=== PATIENT | female | born 1960 | race Caucasian/White ===

== ENCOUNTER 2020-10-13 08:45 | Outpatient (CLI) | payer BC | END 2020-10-13 08:46 | disposition home or self-care (01) | LOC: BICMAMMO 08:45 | PROVIDERS: ATTEND Family Medicine | DX: Z12.31 Encounter for screening mammogram for malignant neoplasm of breast (principal); Z91.89 Other specified personal risk factors, not elsewhere classified | CPT/HCPCS: 77063; 77067 ==

== ENCOUNTER 2021-02-07 08:15 | Outpatient (CLI) | payer BC | END 2021-02-07 08:16 | disposition home or self-care (01) | LOC: BICMRI 08:15 | PROVIDERS: ATTEND Anesthesiology Pain Medicine | DX: M54.14 Radiculopathy, thoracic region (principal) | CPT/HCPCS: 72146 ==

== ENCOUNTER 2021-03-19 09:31 | Outpatient (CLI) | payer BC | END 2021-03-19 09:32 | disposition home or self-care (01) | LOC: NM 09:31 | PROVIDERS: ATTEND Anesthesiology Pain Medicine | DX: R07.81 Pleurodynia (principal); R93.7 Abnormal findings on diagnostic imaging of other parts of musculoskeletal system | CPT/HCPCS: 78306; A9503 ==

== ENCOUNTER 2021-04-27 13:44 | Outpatient (CLI) | payer BC ==
[~2021-04-27 13:44] MED LIST: Magnevist 469MG/ML 20 ML VIAL ONE
== END 2021-04-27 13:45 | disposition home or self-care (01) ==
LOC: BICMRI 13:44
PROVIDERS: ATTEND Anesthesiology Pain Medicine
DX: G35 Multiple sclerosis (principal)
CPT/HCPCS: 70553; 82565; A9579

== ENCOUNTER 2022-01-01 08:08 | Outpatient (CLI) | payer BC | END 2022-01-01 08:09 | disposition home or self-care (01) | LOC: BICMAMMO 08:08 | PROVIDERS: ATTEND Family Medicine | DX: Z12.31 Encounter for screening mammogram for malignant neoplasm of breast (principal); Z13.820 Encounter for screening for osteoporosis; M85.89 Other specified disorders of bone density and structure, multiple sites; Z78.0 Asymptomatic menopausal state; Z80.3 Family history of malignant neoplasm of breast; Z91.89 Other specified personal risk factors, not elsewhere classified | CPT/HCPCS: 77063; 77067; 77080 ==

== ENCOUNTER 2022-05-03 09:44 | Outpatient (CLI) | payer BC | END 2022-05-03 09:45 | disposition home or self-care (01) | LOC: RAD 09:44 | PROVIDERS: ATTEND Surgery | DX: K21.9 Gastro-esophageal reflux disease without esophagitis (principal) | CPT/HCPCS: 74220 ==

== ENCOUNTER 2022-06-26 08:37 | Outpatient (CLI) | payer BC | END 2022-06-26 08:38 | disposition home or self-care (01) | LOC: MRI 08:37 | PROVIDERS: ATTEND Anesthesiology Pain Medicine | DX: M47.22 Other spondylosis with radiculopathy, cervical region (principal) | CPT/HCPCS: 72141 ==

== ENCOUNTER 2023-03-19 02:47 | Inpatient (IN) | payer BC ==
[2023-03-19 04:06] VITALS: BMI 29.9
[2023-03-19] MEDS ORDERED: Acetaminophen 325 MG TAB PO PRN (04:15)
[2023-03-19] MEDS ORDERED: Ondansetron ODT 4 MG TAB SL PRN (04:15)
[2023-03-19] MEDS ORDERED: Ondansetron PF 4 MG/2 ML Vial IVP PRN (04:15)
[2023-03-19] MEDS ORDERED: Senokot S 8.6-50 MG TAB PO PRN (04:32)
[2023-03-19 05:35] LABS: #Eosinphils 0.4 thou/uL (0.0-0.7); #Monocytes 1.7 thou/uL (0.11-0.59); #Neutrophils 9.7 thou/uL (1.40-6.50); %Basophils 0.2 % (0.0-1.0); %Eosinophils 2.7 % (0.0-10.0); %Lymphocytes 17.1 % (21.0-51.0); %Monocytes 12.1 % (0.0-10.0); %Neutrophils 67.6 % (42.0-75.0); Hematocrit 33.5 % (36.0-47.0); Hemoglobin 10.5 g/dL (12.0-16.0); Mean Corpuscular HGB CONC 31.3 g/dL (32.0-36.0); Mean Corpuscular Volume 89.3 fl (78.0-98.0); Mean Platelet Volume 10.1 fL (7.4-10.4); Platelet Count 530 10x3/uL (130-400); RBC Distribution Width 13.2 % (11.5-14.5); Red Blood Cell (RBC) Count 3.75 mill/uL (4.20-5.40); White Blood Cell (WBC) Count 14.3 10x3/uL (4.8-10.8)
[2023-03-19 06:02] LABS: ALT (SGPT) 11 U/L (8-55); AST (SGOT) 14 U/L (5-34); Albumin 3.2 g/dL (3.4-4.8); Alkaline Phosphatase 121 U/L (40-110); Anion Gap 13 mmol/L (10-20); BUN (Urea Nitrogen) 10 mg/dL (9.8-20.1); Bilirubin, Total 0.2 mg/dL (0.2-1.2); Calc. Creatinine Clearance 92 mL/min (70-130); Calcium 8.9 mg/dL (7.8-10.44); Carbon Dioxide 28 mmol/L (23-31); Chloride 103 mmol/L (98-107); Estimated GFR 82; Globulin 4.1 g/dL (2.4-3.5); Glucose 106 mg/dL (80-115); Potassium 3.4 mmol/L (3.5-5.1); Protein, Total 7.3 g/dL (5.8-8.1); Sodium 141 mmol/L (136-145)
[2023-03-19] MEDS ORDERED: Morphine 4 MG/ML VIAL SLOW IVP SCH (07:45)
[2023-03-19] MEDS ORDERED: Potassium Chloride 20 MEQ TAB PO SCH (08:00)
[2023-03-19] MEDS: LevoFLOXacin 750 mg/D5W 750 MG in Premix Bag 1 BAG IVPB SCH ×2 (08:35→08:38)
[2023-03-19] MEDS: Gabapentin 300 MG CAP PO SCH ×3 (08:37→21:14)
[2023-03-19] MEDS: DULoxetine 60 MG CAP PO SCH (08:37)
[2023-03-19] MEDS: Famotidine 20 MG TAB PO SCH ×2 (08:37→21:13)
[2023-03-19] MEDS: Baclofen 10 MG TAB PO PRN ×2 (10:21→23:40)
[2023-03-19 11:20] LABS: INR-International Normal Ratio 1.1; PTT 53.8 sec (22.9-36.1)
[2023-03-19] MEDS: Morphine 4 MG/ML VIAL SLOW IVP PRN ×3 (13:28→23:39)
[2023-03-19] MEDS ORDERED: Iopamidol-370 76% 500 ML MDV (1 ML CHARGE) ONE (16:01)
[2023-03-19] MEDS ORDERED: Montelukast Sodium 10 mg Tablet PO SCH (21:00)
[2023-03-19] MEDS: DULoxetine 30 MG CAP PO SCH (21:12)
[2023-03-20 06:11] LABS: #Basophils 0.1 thou/uL (0.0-0.2); #Eosinphils 0.4 thou/uL (0.0-0.7); #Monocytes 1.6 thou/uL (0.11-0.59); #Neutrophils 7.4 thou/uL (1.40-6.50); %Basophils 0.4 % (0.0-1.0); %Eosinophils 3.4 % (0.0-10.0); %Lymphocytes 15.9 % (21.0-51.0); %Neutrophils 65.8 % (42.0-75.0); Hemoglobin 9.8 g/dL (12.0-16.0); Mean Corpuscular HGB CONC 31.6 g/dL (32.0-36.0); Mean Corpuscular Volume 88.6 fl (78.0-98.0); Mean Platelet Volume 9.8 fL (7.4-10.4); Platelet Count 541 10x3/uL (130-400); RBC Distribution Width 13.3 % (11.5-14.5); White Blood Cell (WBC) Count 11.3 10x3/uL (4.8-10.8)
[2023-03-20] MEDS: Morphine 4 MG/ML VIAL SLOW IVP PRN (06:38)
[2023-03-20 07:06] LABS: ALT (SGPT) 13 U/L (8-55); AST (SGOT) 24 U/L (5-34); Albumin 2.9 g/dL (3.4-4.8); Alkaline Phosphatase 105 U/L (40-110); Anion Gap 15 mmol/L (10-20); BUN (Urea Nitrogen) 6 mg/dL (9.8-20.1); Bilirubin, Total 0.2 mg/dL (0.2-1.2); Calc. Creatinine Clearance 94 mL/min (70-130); Calcium 8.9 mg/dL (7.8-10.44); Carbon Dioxide 26 mmol/L (23-31); Chloride 102 mmol/L (98-107); Estimated GFR 85; Globulin 3.9 g/dL (2.4-3.5); Glucose 100 mg/dL (80-115); Potassium 3.8 mmol/L (3.5-5.1); Protein, Total 6.8 g/dL (5.8-8.1); Sodium 139 mmol/L (136-145)
[2023-03-20] MEDS ORDERED: Acetaminophen 325 MG TAB PO PRN (08:27)
[2023-03-20] MEDS ORDERED: clonazePAM 1 MG TAB PO SCH (09:00)
[2023-03-20] MEDS ORDERED: fentaNYL 50 mcg/mL 1 mL Vial ONE (09:24)
[2023-03-20] MEDS ORDERED: Lidocaine 1% PF 5 ML VIAL ONE (09:56)
[2023-03-20] MEDS ORDERED: PHENYLEPHRINE-NS 100 MCG/ML 10 ML SYRINGE ONE (09:56)
[2023-03-20] MEDS ORDERED: PROPOFOL 200 MG/20 ML VIAL ONE (09:56)
[2023-03-20] MEDS: DULoxetine 60 MG CAP PO SCH (10:59)
[2023-03-20] MEDS: Gabapentin 300 MG CAP PO SCH ×3 (10:59→21:49)
[2023-03-20] MEDS: Loratadine 10 MG TAB PO SCH (11:00)
[2023-03-20] MEDS: Morphine 2 MG/ML VIAL SLOW IVP PRN ×3 (12:47→21:52)
[2023-03-20] MEDS ORDERED: Sodium Chloride 0.9% 1,000 ML IV SCH (13:15)
[2023-03-20] MEDS ORDERED: Lidocaine 4% PF 5 ML AMP NEB SCH (14:00)
[2023-03-20] MEDS ORDERED: Ipratropium/Albuterol 3 ML NEB NEB SCH (14:00)
[2023-03-20] MEDS: Docusate 100 MG CAP PO PRN ×2 (17:33→17:36)
[2023-03-20] MEDS: DULoxetine 30 MG CAP PO SCH (21:51)
[2023-03-20] MEDS: Baclofen 10 MG TAB PO PRN (21:51)
[2023-03-21] MEDS ORDERED: Morphine 2 MG/ML VIAL SLOW IVP PRN (00:50)
[2023-03-21] MEDS: Sodium Chloride 0.9% 1,000 ML IV SCH ×2 (02:46→20:46)
[2023-03-21] MEDS ORDERED: fentaNYL PF 100 MCG/2 ML SYRINGE ONE (06:28)
[2023-03-21] MEDS ORDERED: Dexmedetomidine 200 MCG/2 ML VIAL ONE (06:29)
[2023-03-21] MEDS ORDERED: SUGAMMADEX SODIUM 200 MG/2 ML VIAL ONE (06:29)
[2023-03-21] MEDS ORDERED: Propofol 500 MG/50 ML VIAL ONE (06:50)
[2023-03-21] MEDS ORDERED: Lidocaine 1% PF 5 ML VIAL ONE (07:35)
[2023-03-21] MEDS ORDERED: Glycopyrrolate 0.2 MG/ML 5 ML SYRINGE ONE (07:35)
[2023-03-21] MEDS ORDERED: Rocuronium Bromide 10 MG/ML (10ML VIAL) ONE (07:35)
[2023-03-21] MEDS ORDERED: PROPOFOL 200 MG/20 ML VIAL ONE (07:35)
[2023-03-21] MEDS ORDERED: Ondansetron PF 4 MG/2 ML Vial ONE (07:35)
[2023-03-21] MEDS ORDERED: Dexamethasone 20 MG/5 ML VIAL ONE (07:35)
[2023-03-21] MEDS ORDERED: NEOSTIGMINE 3 MG/3 ML SYR 3 MG/3 ML SYRINGE ONE (07:35)
[2023-03-21] MEDS ORDERED: Albuterol HFA (OR) 200 PUFF INH ONE (07:35)
[2023-03-21] MEDS ORDERED: PHENYLEPHRINE-NS 100 MCG/ML 10 ML SYRINGE ONE (07:35)
[2023-03-21] MEDS: Gabapentin 300 MG CAP PO SCH ×3 (11:34→20:44)
[2023-03-21] MEDS: DULoxetine 60 MG CAP PO SCH (11:35)
[2023-03-21] MEDS ORDERED: Phenol 177 ML BOT PO PRN (11:48)
[2023-03-21] MEDS: Baclofen 10 MG TAB PO PRN (14:34)
[2023-03-21] MEDS: HYDROcodone/Acetaminophen 10/325 mg Tablet PO PRN ×2 (14:34→18:42)
[2023-03-21] MEDS: Docusate 100 MG CAP PO PRN (18:42)
[2023-03-21] MEDS: DULoxetine 30 MG CAP PO SCH (20:45)
[2023-03-22] MEDS: HYDROcodone/Acetaminophen 10/325 mg Tablet PO PRN ×2 (00:06→07:32)
[2023-03-22 08:24] VITALS: TEMP 98.4
[2023-03-22] MEDS ORDERED: FLU VACC QS2023-24(6MOS UP)/PF 60 MCG/0.5 ML SYRINGE IM ONE (09:00)
[2023-03-22] MEDS: Gabapentin 300 MG CAP PO SCH (09:10)
[2023-03-22] MEDS: DULoxetine 60 MG CAP PO SCH (09:10)
[2023-03-22 09:15] VITALS: BP 110/73
[2023-03-22] MEDS: Loratadine 10 MG TAB PO SCH (09:24)
[2023-03-22] MEDS: Baclofen 10 MG TAB PO PRN (09:24)
== END 2023-03-22 10:49 | disposition home or self-care (01) | DRG 327 ==
LOC: SJJU 03:29 → OBSVTOIN 03-20 08:27
PROVIDERS: ADMIT Family Medicine; ATTEND Internal Medicine
PROC: 0DW63CZ Revision of Extraluminal Device in Stomach, Percutaneous Approach (ICD-10-PCS; 2023-03-20)
PROC: 0DJ08ZZ Inspection of Upper Intestinal Tract, Via Natural or Artificial Opening Endoscopic (ICD-10-PCS; 2023-03-20)
PROC: 0BBF8ZX Excision of Right Lower Lung Lobe, Via Natural or Artificial Opening Endoscopic, Diagnostic (ICD-10-PCS; principal; 2023-03-21)
PROC: 0BDF8ZX Extraction of Right Lower Lung Lobe, Via Natural or Artificial Opening Endoscopic, Diagnostic (ICD-10-PCS; 2023-03-21)
DX: K95.09 Other complications of gastric band procedure (principal); R04.2 Hemoptysis; R91.8 Other nonspecific abnormal finding of lung field; K21.9 Gastro-esophageal reflux disease without esophagitis; F32.A Depression, unspecified; G89.29 Other chronic pain; M54.9 Dorsalgia, unspecified; Z79.899 Other long term (current) drug therapy; F17.210 Nicotine dependence, cigarettes, uncomplicated; Z71.6 Tobacco abuse counseling; R13.19 Other dysphagia; R91.1 Solitary pulmonary nodule; Y83.8 Other surgical procedures as the cause of abnormal reaction of the patient, or of later complication, without mention of misadventure at the time of the procedure; Z80.1 Family history of malignant neoplasm of trachea, bronchus and lung; Z80.3 Family history of malignant neoplasm of breast; R07.81 Pleurodynia; F17.290 Nicotine dependence, other tobacco product, uncomplicated
CPT/HCPCS: 36415; 71045; 71275; 74177; 80053; 83605; 83880; 84145; 84484; 85025; 85610; 85730; 87040; 87070; 87102; 87116; 87205; 87206; 88112; 88305; 90471; 90686; 93005; 96365; 96367; 96372; 96374; 96375; 96376; G0008; G0378; G0379; J0456; J0696; J1100; J1170; J1650; J1956; J2270; J2272; J2405; J2704; J3010; J7050; Q9967

== ENCOUNTER 2023-04-22 08:45 | Outpatient (CLI) | payer BC | END 2023-04-22 08:46 | LOC: PET 08:45 | PROVIDERS: ATTEND Internal Medicine Hematology & Oncology | DX: C34.31 Malignant neoplasm of lower lobe, right bronchus or lung (principal); R91.8 Other nonspecific abnormal finding of lung field | CPT/HCPCS: 78815; A9552 ==

== ENCOUNTER 2023-04-24 08:46 | Day surgery (SDC) | payer BC ==
[2023-04-24 08:39] LABS: #Eosinphils 0.2 thou/uL (0.0-0.7); #Neutrophils 5.6 thou/uL (1.40-6.50); %Basophils 0.3 % (0.0-1.0); %Eosinophils 1.8 % (0.0-10.0); %Lymphocytes 24.4 % (21.0-51.0); %Monocytes 10.7 % (0.0-10.0); %Neutrophils 62.5 % (42.0-75.0); Hematocrit 38.4 % (36.0-47.0); Hemoglobin 11.4 g/dL (12.0-16.0); Mean Corpuscular HGB CONC 29.7 g/dL (32.0-36.0); Mean Corpuscular Hemoglobin 27.1 pg (27.0-31.0); Mean Corpuscular Volume 91.2 fl (78.0-98.0); Mean Platelet Volume 9.4 fL (7.4-10.4); Platelet Count 540 10x3/uL (130-400); Red Blood Cell (RBC) Count 4.21 mill/uL (4.20-5.40)
[2023-04-24 08:50] LABS: INR-International Normal Ratio 0.9; Prothrombin Time 12.7 sec (12.0-14.7)
[2023-04-24 08:51] LABS: PTT 34.5 sec (22.9-36.1)
[2023-04-24 11:34] VITALS: BP 125/96; TEMP 99.4
== END 2023-04-24 13:27 | disposition home or self-care (01) ==
LOC: CT 08:46
PROVIDERS: ATTEND Internal Medicine Hematology & Oncology
PROC: 0BBC3ZX Excision of Right Upper Lung Lobe, Percutaneous Approach, Diagnostic (ICD-10-PCS; principal; 2023-04-24)
DX: J85.0 Gangrene and necrosis of lung (principal); J84.10 Pulmonary fibrosis, unspecified; C34.31 Malignant neoplasm of lower lobe, right bronchus or lung; R91.1 Solitary pulmonary nodule; Z87.891 Personal history of nicotine dependence
CPT/HCPCS: 32408; 36415; 71045; 77012; 85025; 85610; 85730; 88305; 88333; 88334

== ENCOUNTER 2023-05-23 08:13 | Outpatient (CLI) | payer BC | END 2023-05-23 08:14 | disposition home or self-care (01) | LOC: RAD 08:13 | PROVIDERS: ATTEND Internal Medicine | DX: R91.8 Other nonspecific abnormal finding of lung field (principal); J90 Pleural effusion, not elsewhere classified | CPT/HCPCS: 71046 ==

== ENCOUNTER 2023-12-26 09:51 | Outpatient (CLI) | payer MEDICARE, OTHER | END 2023-12-26 09:52 | disposition home or self-care (01) | LOC: RAD 09:51 | PROVIDERS: ATTEND Internal Medicine | DX: R91.8 Other nonspecific abnormal finding of lung field (principal) | CPT/HCPCS: 71046 ==